=== PATIENT | female | born 1970 | race Caucasian/White ===

== ENCOUNTER → 2017-03-12 | Outpatient (CLI) | payer OTHER ==
--- NOTE | 2017-03-12 13:03 | KCIC ---
PROCEDURE Lumbar spine MRI without contrast. HISTORY Right lower extremity radiculopathy and lower back pain. TECHNIQUE Multiplanar and multi sequence magnetic resonance imaging of the lumbar spine was performed without contrast. COMPARISON None. FINDINGS There is minimal grade 1 anterolisthesis of L5 on S1, measuring 2 mm. There is disc desiccation and advanced degenerative endplate remodeling at this level. No suspicious osseous lesion is seen. The conus terminates at L1. There is a 1.3 cm Tarlov cyst within the sacral canal at S2. At L1-L2, there is no stenosis. At L2-L3, there is no stenosis. At L3-L4, there is no stenosis. At L4-L5, there is minimal facet arthropathy. There is no stenosis. At L5-S1, there is a right paracentral to lateral recess disc protrusion with slight inferior extrusion superimposed on a disc bulge and endplate remodeling. There is deviation of the traversing right S1 and S2 nerve roots without significant central canal stenosis. IMPRESSION 1. L4-L5: Right paracentral to lateral recess disc protrusion with slight inferior extrusion superimposed on a disc bulge and endplate remodeling, resulting in deviation of the traversing right S1 and S2 nerve roots. 2. Minimal degenerative change at L4-L5. Electronically signed by: Melisa Aaron (Mar 12, 2017 13:02:10)
== END | disposition home or self-care (01) ==
LOC: KCIC MRI 12:15
PROVIDERS: ATTEND General Practice
DX: M47.896 Other spondylosis, lumbar region (principal)
CPT/HCPCS: 72148